=== PATIENT | female | born 1975 | race Caucasian/White ===

== ENCOUNTER 2016-11-05 09:29 | Inpatient (IN) | payer BC ==
--- NOTE | 2016-11-05 10:10 | ED ---
General Adult HPI - General Chief complaint: Psychiatric Symptoms Stated complaint: Mental Health Time Seen by Provider: 11/05/16 10:01 Source: patient, RN notes reviewed Mode of arrival: ambulatory Limitations: no limitations - History of Present Illness Initial comments: Patient is a 41-year-old female who presents emergency room today with a chief complaint of suicidal ideation. She does admit to a history of depression. States she's had thoughts of hurting herself in the past. States over the last few weeks since been increasingly she's having increased thoughts of hurting herself. She states she does have a specific plan. Patient does not go into detail at this time. Patient's is at bedside with her. Patient states she has been trying to see a new counselor or therapist but does not have an appointment the last week. States her family doctor's been managing her medications for anxiety and depression. She states been no changes and she has been taking the medication as prescribed. Patient denies any homicidal thoughts or plans. She denies any visual or auditory hallucinations. Denies any other physical complaints. Patient denies any recent fever, chills, shortness of breath, chest pain, back pain, abdominal pain, nausea or vomiting, numbness or tingling, dysuria or hematuria, constipation or diarrhea, headaches or visual changes, or any other complaints. - Related Data Home Medications Medication Instructions Recorded Confirmed Ergocalciferol (Vitamin D2) 50,000 unit PO OLSON 11/05/16 11/05/16 [Vitamin D2] LORazepam [Ativan] 0.5 mg PO HS 11/05/16 11/05/16 Lansoprazole [Prevacid] 30 mg PO DAILY 11/05/16 11/05/16 Ondansetron [Zofran ODT] 8 mg PO Q8HR PRN 11/05/16 11/05/16 Allergies Allergy/AdvReac Type Severity Reaction Status Date / Time duloxetine [From Cymbalta] Allergy Unknown Verified 11/05/16 11:47 erythromycin base Allergy Unknown Verified 11/05/16 11:47 sulfamethoxazole Allergy Unknown Verified 11/05/16 11:47 [From Bactrim] trimethoprim [From Bactrim] Allergy Unknown Verified 11/05/16 11:47 Review of Systems ROS Statement: Those systems with pertinent positive or pertinent negative responses have been documented in the HPI. ROS Other: All systems not noted in ROS Statement are negative. Past Medical History Past Medical History: No Reported History History of Any Multi-Drug Resistant Organisms: None Reported Past Surgical History: Section, Cholecystectomy, Tubal Ligation Additional Past Surgical History / Comment(s): left breast lump removed, Leap procedure Past Psychological History: Anxiety, Depression Smoking Status: Current every day smoker Past Alcohol Use History: None Reported Past Drug Use History: Marijuana General Exam - General Exam Comments Initial Comments: General: The patient is awake and alert, in no distress, and does not appear acutely ill. Eye: Pupils are equal, round and reactive to light, extra-ocular movements are intact. No nystagmus. There is normal conjunctiva bilaterally. No signs of icterus. Ears, nose, mouth and throat: There are moist mucous membranes and no oral lesions. Neck: The neck is supple, there is no tenderness or JVD. Cardiovascular: There is a regular rate and rhythm. No murmur, rub or gallop is appreciated. Respiratory: Lungs are clear to auscultation, respirations are non-labored, breath sounds are equal. No wheezes, stridor, rales, or rhonchi. Musculoskeletal: Normal ROM, no tenderness. Strength 5/5. Sensation intact. Pulses equal bilaterally 2+. Neurological: A&O x 3. CN II-XII intact, There are no obvious motor or sensory deficits. Coordination appears grossly intact. Speech is normal. Skin: Skin is warm and dry and no rashes or lesions are noted. Psychiatric: Cooperative. Tearful. Depressed affect. Limitations: no limitations Course Vital Signs 11/05/16 11/05/16 09:36 12:41 Temperature 97.7 F 98.3 F Pulse Rate 109 H 77 Respiratory 17 17 Rate Blood Pressure 145/88 119/68 O2 Sat by Pulse 99 97 Oximetry Medical Decision Making - Lab Data Lab Results 11/05/16 11/05/16 Range/Units 09:40 09:40 Urine HCG, Qual Not Detected (Not Detectd) Urine Opiates Screen Not Detected (NotDetected) Ur Oxycodone Screen Not Detected (NotDetected) Urine Methadone Screen Not Detected (NotDetected) Ur Propoxyphene Screen Not Detected (NotDetected) Ur Barbiturates Screen Not Detected (NotDetected) U Tricyclic Antidepress Not Detected (NotDetected) Ur Phencyclidine Scrn Not Detected (NotDetected) Ur Amphetamines Screen Not Detected (NotDetected) U Methamphetamines Scrn Not Detected (NotDetected) U Benzodiazepines Scrn Detected H (NotDetected) Urine Cocaine Screen Not Detected (NotDetected) U Marijuana (THC) Screen Detected H (NotDetected) Disposition Clinical Impression: Suicidal ideation Disposition: Left Against Medical Advice Condition: Stable
[2016-11-05] MEDS ORDERED: MAG HYDROX/AL HYDROX/SIMETH 30 ML CUP PO PRN (12:53)
[2016-11-05] MEDS ORDERED: ACETAMINOPHEN TAB 325 MG TAB PO PRN (12:53)
[2016-11-05] MEDS ORDERED: MAGNESIUM HYDROXIDE 2,400 MG/10 ML CUP PO PRN (12:53)
[2016-11-05] MEDS ORDERED: LORazepam 1 MG TAB PO PRN (15:36)
[2016-11-05] MEDS ORDERED: NICOTINE 21MG/24HR PATCH TRANSDERM SCH (15:45)
[2016-11-05] MEDS ORDERED: ONDANSETRON 4 MG TAB PO PRN (15:46)
[2016-11-05] MEDS: NICOTINE 14MG/24HR PATCH TRANSDERM SCH (15:51)
[2016-11-05] MEDS: PARoxetine 10 MG TAB PO SCH (15:51)
[2016-11-05] MEDS: LORazepam 1 MG TAB PO PRN (15:51)
--- NOTE | 2016-11-05 16:03 | P.HP ---
Psychiatric H&P - . H&P Date: 11/05/16 History & Physical: Allergies Allergy/AdvReac Type Severity Reaction Status Date / Time duloxetine From Cymbalta Allergy Unknown Verified 11/05/16 11:47 erythromycin base Allergy Unknown Verified 11/05/16 11:47 sulfamethoxazole Allergy Unknown Verified 11/05/16 11:47 From Bactrim trimethoprim From Bactrim Allergy Unknown Verified 11/05/16 11:47 Vital Signs Temp 98.3 F 11/05/16 12:41 Pulse 77 11/05/16 12:41 Resp 17 11/05/16 12:41 BP 119/68 11/05/16 12:41 Pulse Ox 97 11/05/16 12:41 Intake & Output 11/04/16 11/05/16 11/05/16 18:59 06:59 18:59 Weight 56.699 kg Laboratory Last Values Urine HCG, Qual Not Detected (Not Detectd) 11/05/16 09:40 Urine Opiates Screen Not Detected (NotDetected) 11/05/16 09:40 Ur Oxycodone Screen Not Detected (NotDetected) 11/05/16 09:40 Urine Methadone Screen Not Detected (NotDetected) 11/05/16 09:40 Ur Propoxyphene Screen Not Detected (NotDetected) 11/05/16 09:40 Ur Barbiturates Screen Not Detected (NotDetected) 11/05/16 09:40 U Tricyclic Antidepress Not Detected (NotDetected) 11/05/16 09:40 Ur Phencyclidine Scrn Not Detected (NotDetected) 11/05/16 09:40 Ur Amphetamines Screen Not Detected (NotDetected) 11/05/16 09:40 U Methamphetamines Scrn Not Detected (NotDetected) 11/05/16 09:40 U Benzodiazepines Scrn Detected (NotDetected) H 11/05/16 09:40 Urine Cocaine Screen Not Detected (NotDetected) 11/05/16 09:40 U Marijuana (THC) Screen Detected (NotDetected) H 11/05/16 09:40 11/05/16 15:09 DATE OF SERVICE: 11/05/2016 IDENTIFYING DATA: This patient is a 41 year-old female who was admitted to the mental health unit through emergency room, patient brought herself to the emergency room due to recent onset of suicidal ideation. . HISTORY OF PRESENT ILLNESS: The patient presents with 12 years depression and anxiety off and on, it effects her physically, becomes sick to stomach, nausea and vomiting. When severe she will lose weight. She will have periods where she his fine no physical problems and feels good. Due to lack of insurance she would frequently be treated in the emergency rooms due to dehydration, she would be given IV fluids and Zofran and Ativan. Now her outpatient doctor is treating her with Zofran and Ativan and had plans to start Paxil. Patient reports that she has tried Cymbalta and Wellbutrin Prozac and had negative effects with them primarily GI . 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 They brought her back into the office and she is afraid that she may lose her job because she is sick too often. Her sleep is disturbed waking up every few hours, wakes up 4:57 in the morning sometimes with vomiting. Reports that she has lost 35 pounds since April she is not trying to lose weight she also notes that she loses hair Patient has never attempted suicide, but thoughts of suicide and in lat 24 hours came up with a plan, OD but afraid her children would find her so she came in to the hospital. Her outpatient doctor was planning on starting her on Paxil because it was the one antidepressant that she had used about 12 years ago for her son was born, and she took it for approximately 2 years. PAST PSYCHIATRIC HISTORY: denies. PAST MEDICAL HISTORY: denies ALLERGIES: No known drug allergies. CHEMICAL DEPENDENCY HISTORY: does not drink, use cannabis, smokes daily, at bedtime. 1ppd FAMILY PSYCHIATRIC HISTORY: brother with bipolar schizophrenic. FAMILY CHEMICAL DEPENDENCY HISTORY:grandfather etohic, uncle drug. LEGAL HISTORY: none. SOCIAL HISTORY: [employer] in , parents when 18, 1 bio brother, 1step brother, step sister. Both parents here, good relationship with parents and bother. x 1 for 15 years, 11 son 14 daughter. Daughter contemplated suicide, and hospitalized at [facility], patient thinks daughter became aware of marital problems. 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 GED. No service. . MENTAL STATUS EXAM:Patient alert and oriented 3, good eye contact, wel groomed in hospital attire/street clothing. Speech low volume, rate and production. Coherent, logical and goal directed thought process. No SRIKANTH, no FOI. [No TB/TW/ TI] Denied auditory and visual hallucinations. Denied paranoid ideation, delusions or IOR. Memory [intact] Cognition average Recalled 3 out of 3 at 0 minutes, [3/3@ 5minuters]; Serial 7's [] Mood [dysphoric], affect and constricted, congruent with mood. Denies suicidal ideation, denies homicidal ideation. Insight partial; Judgement grossly intact for treatment purposes . STRENGTHS: verbal, employed WEAKNESSES: poor coping skills IMPRESSIONS: 41-year-old female with a 12 year history of depression and anxiety that has a primary presentation with nausea and vomiting and weight loss. She has tried multiple antidepressants but has been unable to tolerate either vomiting or having some form of confusion poor concentration. She took Paxil more than 12 years ago for approximately 2 years and had no problems. She meets criteria for major depressive disorder, depressed mood, anhedonia, fatigue, insomnia in all phases, but only recently did she start to have thoughts of suicide and then had a plan in the last 24 hours which brought her into the hospital. She has been having some marital conflict, her 14-year-old daughter was recently hospitalized due to suicide ideation, poor school performance recently. She is also stressed due to work with risk of loss of job. No evidence of ruperto or hypomania. No psychosis Suicidal ideation, no intent. Major depressive disorder, recurrent, severe Suicide ideation Cannabis use, moderate PLAN: Continue inpatient psychiatric hospitalization for safety, and for treatment. Suicide precautions 15 minute checks. History and physical by hospitalist. Will begin Paxil 10 mg, she may also use Zofran, and Ativan if nauseated. Nicotine patch 21 mg Encourage to attend groups. Social work to address discharge planning/family meeting 11/05/16 15:47 11/05/16 15:57 11/05/16 16:03
[2016-11-05] MEDS ORDERED: ONDANSETRON 4 MG TAB PO SCH (21:00)
[2016-11-05] MEDS: SCOPOLAMINE 1.5MG/72HR PATCH TRANSDERM SCH (21:35)
[2016-11-06] MEDS ORDERED: PARoxetine 10 MG TAB PO SCH (09:00)
[2016-11-06] MEDS: LORazepam 1 MG TAB PO PRN ×2 (09:23→21:51)
[2016-11-06] MEDS: NICOTINE 14MG/24HR PATCH TRANSDERM SCH (09:23)
[2016-11-06] MEDS: PARoxetine 10 MG TAB PO SCH (09:23)
[2016-11-06 10:13] LABS: Basophils % (A) 1 %; CH 32.3; CHCM 33.4; Eosinophils # (A) 0.1 k/uL (0-0.7); Eosinophils % (A) 1 %; HCT 43.4 % (34.0-46.0); HDW 2.19; HGB 14.2 gm/dL (11.4-16.0); Luc # (Auto) 0.12; Luc % (Auto) 2; Lymphocytes # (A) 2.1 k/uL (1.0-4.8); Lymphocytes % (A) 32 %; MCH 31.8 pg (25.0-35.0); MCHC 32.7 g/dL (31.0-37.0); MCV 97.3 fL (80.0-100.0); Mean Platelet Volume 7.9; Monocytes # (A) 0.4 k/uL (0-1.0); Monocytes % (A) 7 %; Neutrophils # (A) 3.8 k/uL (1.3-7.7); Neutrophils % (A) 58 %; RBC 4.46 m/uL (3.80-5.40); RDW 13.5 % (11.5-15.5); WBC 6.6 k/uL (3.8-10.6); WBC (Perox) 6.62
[2016-11-06 10:22] LABS: ALT 14 U/L (9-52); AST 25 U/L (14-36); Alkaline Phosphatase 68 U/L (38-126); Anion Gap 14 mmol/L; Blood Urea Nitrogen 9 mg/dL (7-17); Calcium 9.3 mg/dL (8.4-10.2); Carbon Dioxide 20 mmol/L (22-30); Chloride 107 mmol/L (98-107); Glucose 91 mg/dL (74-99); Non-African American GFR(MDRD) >60 (>60 ml/min/1.73 sqM); Sodium 141 mmol/L (137-145); Total Bilirubin 1.2 mg/dL (0.2-1.3); Total Protein 7.8 g/dL (6.3-8.2)
[2016-11-06] MEDS: ONDANSETRON 4 MG TAB PO PRN ×2 (10:26→21:51)
[2016-11-06 10:49] LABS: Potassium 4.4 mmol/L (3.5-5.1)
--- NOTE | 2016-11-06 12:38 | CONS ---
DATE OF CONSULTATION: 11/05/2016 REASON FOR CONSULTATION: Medical management requested by Dr. Villar. CONSULTATION: This is a pleasant 41-year-old patient of Dr. Manuel Live who has a long-standing history of depression and anxiety, going through some stress at work. Patient is a smoker. Also has GERD and felt to be suicidal, hence decided to come into the ER. Patient gets abdominal discomfort off and on she states. REVIEW OF SYSTEMS: CONSTITUTIONAL: None. HEENT: None. RESPIRATORY: None. CARDIOVASCULAR: None. GASTROINTESTINAL: Heartburn. Patient does get some abdominal discomfort intermittently. GENITOURINARY: None. MUSCULOSKELETAL: None. DERMATOLOGIC: None. HEMATOLOGIC: None LYMPHATICS: None. PSYCHIATRY: Depression, anxiety. NEUROLOGICAL: None. Past medical history of major depression, GERD. PAST SURGICAL HISTORY: , cholecystectomy, tubal ligation, left breast lymph removed, LEEP procedure. SOCIAL HISTORY: Patient smokes a pack a day, does marijuana once a day. , employed. FAMILY HISTORY: Reviewed; noncontributory to presentation. HOME MEDICATIONS: Zofran 8 mg q.8 p.r.n., Prevacid 30 mg p.o. daily, Ativan 0.5 mg p.o. q.h.s., Vitamin D2 fifty thousand units Sundays. Allergies to CYMBALTA, ERYTHROMYCIN, BACTRIM. On examination, temperature 98.3, pulse 77, respirations 17, blood pressure 109/68, pulse ox 97% on room air. GENERAL APPEARANCE: Thin build, lying in bed, tired-appearing. EYES: Pupils equal. Conjunctivae normal. HEENT: Oral cavity normal. NECK: JVD not raised. Mass not palpable. RESPIRATORY: Effort normal. LUNGS: Clear. CARDIOVASCULAR: First and second sounds normal. No edema. ABDOMEN: Soft, nontender. Liver and spleen not palpable. LYMPHATIC: No lymph nodes palpable in neck or axillae. PSYCHIATRY: Alert and oriented x3. Mood and affect depressed-appearing. NEUROLOGICAL: Pupils equal. Cranial nerves grossly intact. Power and sensation grossly intact. INVESTIGATIONS: Urine drug screen positive for benzos and marijuana. ASSESSMENT: 1. Major depression, recurrent suicidal ideation. 2. Gastroesophageal reflux disease. 3. Chronic nicotine dependence. Patient is a smoker. 4. Marijuana use, recreational, daily. PLAN: Patient advised against smoking, given a nicotine patch. Also counseled against marijuana. Patient to be started on Paxil and Ativan per Psychiatry. For patient's nausea, give her a scopolamine encouraged. Encouraged to be out of bed. Thank you, Dr. Villar.
--- NOTE | 2016-11-06 14:39 | P.PN ---
Progress Note - Text INTERVERAL HISTORY: Patient called to nurse's station. Patient states that she is feeling very tired sleeping. States she normally doesn't take Zofran during the day only at bedtime unless she is really sick and has to go to work. She was prescribed scopolamine patch which may be part of the sedation. She took the Paxil yesterday and although she woke up early this morning with some dry heaves, she was able to keep it down. She notes that she had some diarrhea last night we discussed that was unlikely due to Paxil but due to her anxiety. In team treatment meeting this morning I was informed that she had signed AMA form. Asked her about that, she states that she thinks that maybe she was just overreacting to her anxiety and came in. States she would never kill her self, that she has 2 beautiful children and that she wants to be here for them. During the treatment team meeting the social work nurse revealed some additional difficulties that the patient is having some contradictions in her history. It was decided that she would remain for the real time analyst available for the AMA, and will address on Wednesday or Wednesday. Discussed increasing Paxil to 20 mg for tomorrow morning initially she wanted to wait for a few days, but informed her that it makes sense while she is in the hospital to increase because we can help her with the nausea or vomiting if it occurs. She agreed MENTAL STATUS EXAM:Patient alert and oriented 3, good eye contact, fair groomed in street clothing. Speech normal volume, rate and production. Coherent, logical and goal directed thought process. No SRIKANTH, no FOI. [No TB/TW/ TI] Denied auditory and visual hallucinations. Denied paranoid ideation, delusions or IOR. Memory [grossly intact] Cognition average Mood dysphoric, affect constricted, congruent with mood. +suicidal ideation, denies homicidal ideation. Insight and limited; Judgement grossly intact for treatment purposes A: 41-year-old female with a 12 year history of depression and anxiety that is somatically experienced. Focused on her physical symptoms now and minimizing her psychological distress. Family history was not revealed of a serious suicide attempt by her father when she around her daughters age. She has also taken her daughter out of treatment. She meets criteria for major depressive disorder, depressed mood, anhedonia, fatigue, insomnia in all phases, but only recently did she start to have thoughts of suicide and then had a plan in the last 24 hours which brought her into the hospital. She has been having some marital conflict, her 14-year-old daughter was recently hospitalized due to suicide ideation, poor school performance recently. She is also stressed due to work with risk of loss of job. No evidence of ruperto or hypomania. No psychosis Suicidal ideation, no intent. Major depressive disorder, recurrent, severe Suicide ideation Cannabis use, moderate PLAN: Continue inpatient psychiatric hospitalization for safety, and for treatment. Suicide precautions 15 minute checks. Appreciate input from hospitalist for nausea. Will increase Paxil 20 mg, begin tomorrow Nicotine patch 21 mg Encourage to attend groups. Social work to address discharge planning/family meeting
[2016-11-07] MEDS: NICOTINE 14MG/24HR PATCH TRANSDERM SCH (08:46)
[2016-11-07] MEDS: PARoxetine 20 MG TAB PO SCH (08:46)
--- NOTE | 2016-11-07 16:47 | P.PN ---
Progress Note - Text Interval history: [facility] for Dr. Villar. She makes reference to wanting to be old to go home. She signed an AMA form yesterday she states. We did discuss that her attending psychiatrist would be returning this Wednesday. He makes reference to having follow-up at [facility]. She states that she is doing much better in terms of her nausea and vomiting. She seems to be tolerating the Paxil well. She talks of wanting to be home with her family. Mental status exam: She is alert and cooperative with the interview. Her speech is fluent, not rapid or pressured. Thought processes are organized. Her mood overall seems to be improved. She does not verbalize any thoughts of harm to self or others. No evidence of psychosis or agitation. Plan: We'll maintain Paxil as current. We will monitor for any medication side effects and monitor her ongoing response. We'll continue to cover this patient for Dr. Villar through the weekend.
[2016-11-07] MEDS: LORazepam 1 MG TAB PO PRN (18:03)
[2016-11-07] MEDS: ONDANSETRON 4 MG TAB PO PRN (18:23)
[2016-11-08] MEDS: PARoxetine 20 MG TAB PO SCH (08:54)
[2016-11-08] MEDS: NICOTINE 14MG/24HR PATCH TRANSDERM SCH (08:54)
--- NOTE | 2016-11-08 14:04 | P.PN ---
Progress Note - Text Interval history: Patient seen in cross coverage today for Dr. Villar. She reports that she is feeling better. She states that earlier today she felt lightheadedness it is doing better now. She states that she has not been vomiting yesterday or today. She seems to be doing well with the Paxil. Mental status exam: She is alert and cooperative with the interview. Her speech is fluent, not rapid or pressured. Thought processes are organized. Her affect does show range. Her mood is improved. She denies any thoughts of harm to self or others. No evidence of psychosis or agitation. Plan: Patient will be maintained on current psychotropic medication regimen. We will be checking her pulse and blood pressure. Dr. Villar to resume care this patient starting tomorrow. She does request regarding her children who are 14 and 11 to [facility].
[2016-11-08] MEDS: SCOPOLAMINE 1.5MG/72HR PATCH TRANSDERM SCH (20:19)
[2016-11-09 08:59] LABS: Glucose,Whole Blood 120 mg/dL (75-99)
[2016-11-09] MEDS: NICOTINE 14MG/24HR PATCH TRANSDERM SCH (09:31)
[2016-11-09] MEDS ORDERED: ONDANSETRON ODT 8 MG TAB.RAPDIS PO PRN (09:40)
[2016-11-09] MEDS: LORazepam 1 MG TAB PO PRN ×2 (09:43→21:12)
[2016-11-09] MEDS: PARoxetine 20 MG TAB PO SCH (11:38)
[2016-11-09] MEDS ORDERED: PARoxetine 10 MG TAB PO STA (12:17)
--- NOTE | 2016-11-09 12:27 | P.PN ---
Progress Note - Text INTERVERAL HISTORY: Patient called to nurse's station. Reports she has been taking the higher, dose felt nauseated and some dry heaves with saliva, could not eat breakfast. Took zoforan and ativan laid down for an hour and felt better and hungry. Says this is a good sign for her. Stated she saw children last night, happy but says she was so happy that she might have made herself sick. Says she really wants to go home. Discussed the AMA, asked her to consider revoking and staying longer to solidify the improvement and that taking higher doses would be easier here, she declined, wants to leave [place], her children have some events she does not want to miss. Patient did agree though to let me add paxil 10mg stat and then start 30mg tomorrow morning. Asked about if she has vertigo. MENTAL STATUS EXAM:Patient alert and oriented 3, good eye contact, fair groomed in street clothing. Speech normal volume, rate and production. Coherent, logical and goal directed thought process. No SRIKANTH, no FOI. [No TB/TW/ TI] Denied auditory and visual hallucinations. Denied paranoid ideation, delusions or IOR. Memory [grossly intact] Cognition average Mood dysphoric--->neutral, affect ful range, decreased intensity, congruent with mood. Denies suicidal ideation, denies homicidal ideation. Insight limited; Judgement grossly intact for treatment purposes A: 41-year-old female with a 12 year history of depression and anxiety that is somatically experienced/manifested. Tolerating Paxil 20mg, has appetite, mood appearing better, no suicidal ideation. She meets criteria for major depressive disorder, depressed mood, anhedonia, fatigue, insomnia in all phases, but only recently did she start to have thoughts of suicide and then had a plan in 24 hours TE[employer], now SI resolved. Slight improvement in her mood/affect. No evidence of ruperto or hypomania. No psychosis Suicidal ideation, no intent. Major depressive disorder, recurrent, severe Suicide ideation Cannabis use, moderate PLAN: Continue inpatient psychiatric hospitalization for safety, and for treatment. Suicide precautions 15 minute checks. AMA will end tomorrow morning, no clinical evidence to warrant petition/certification, will have to release tomorrow morning. Now dose of Paxil 10mg, increase Paxil 30 mg, begin tomorrow. She reports she has scrips at home for all medication, zoforan, ativan and paxil 20mg, so will instructions to take 1.5 tab. Nicotine patch 21 mg Encourage to attend groups. Reports her family meeting went well. D/C in am.
[2016-11-09 14:37] VITALS: BMI 20.9
[2016-11-10 06:50] VITALS: TEMP 98.1
--- NOTE | 2016-11-10 08:27 | P.DS ---
Providers Date of admission: 11/05/16 12:41 Expected date of discharge: 11/10/16 Attending physician: Sophia Villar MD Consults: 11/05/16 13:07 Consult Physician Routine Consulting Provider: Roman Sheikh Consult Reason/Comments: follow up h & P Do you want consulting provider notified?: Yes Primary care physician: Manuel Layton Hospital Course: HOSPITAL ADMISSION: This patient is a 41 year-old female who was admitted to the mental health unit through emergency room, patient brought herself to the emergency room due to recent onset of suicidal ideation. . The patient presents with 12 years depression and anxiety off and on, it effects her physically, becomes sick to stomach, nausea and vomiting. When severe she will lose weight. She will have periods where she his fine no physical problems and feels good. Due to lack of insurance she would frequently be treated in the emergency rooms due to dehydration, she would be given IV fluids and Zofran and Ativan. Now her outpatient doctor is treating her with Zofran and Ativan and had plans to start Paxil. Patient reports that she has tried Cymbalta and Wellbutrin Prozac and had negative effects with them primarily GI . 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 They brought her back into the office and she is afraid that she may lose her job because she is sick too often. Her sleep is disturbed waking up every few hours, wakes up 4:57 in the morning sometimes with vomiting. Reports that she has lost 35 pounds since April she is not trying to lose weight she also notes that she loses hair Patient has never attempted suicide, but thoughts of suicide and in last 24 hours came up with a plan, OD but afraid her children would find her so she came in to the hospital. Her outpatient doctor was planning on starting her on Paxil because it was the one antidepressant that she had used about 12 years ago for her son was born, and she took it for approximately 2 years. HOSPITAL COURSE: Patient was started on low-dose Paxil 10 mg, Zofran 8 mg ODT when necessary 3 times a day, and a scopolamine patch. The first day she was unable to keep any food down the second day she did a bit better we increased to 20 mg and although she reported feeling a bit lightheaded she agreed on the last day to increase to 30 mg. Reported that she tolerated the 30 mg yesterday and although she is still a bit lightheaded she reports today she is feeling much better. She signed AMA form second day she was here reporting that she needed to go home to her children that she was no longer suicidal. We discussed this with looking at her past history of being unable to tolerate medications and that since she was here it would make sense to take advantage of the support of nursing so that we did not allow her to leave until the AMA 72 hours had passed. We tried to convince her to stay longer recognizing the need probably for a higher dose of Paxil then 30 mg she declined. There was no clinical evidence to support a certification period She did appear to be a bit less dysphoric, but this appeared to be more of a flight into health than anything else. She had a family meeting that went well she has a supportive spouse and her mother is supportive. She reported that she was able to keep the Paxil down, and that she even noted a return of appetite yesterday late morning. Patient has no suicidal ideation. Mood is still dysphoric but improved, affect is full range decreased intensity. Major Depressive Disorder, Recurrent, moderate Suicide ideation, resolved Plan: Discharge today Patient informed me that she has Zofran Ativan and Paxil at home, she has a 20 mg tablet so she will take 1-1/2 tablets to equal 30 mg Encouraged her to speak to her provider and to increase Paxil at least to 40mg, and to consider the CR formulation if she can afford it. Social work set up outpatient appointments, patient is encouraged to follow up Pertinent Studies: none Procedures: none Plan - Discharge Summary New Discharge Prescriptions: New PARoxetine [Paxil] 30 mg PO DAILY tab Continue Ondansetron [Zofran ODT] 8 mg PO Q8HR PRN PRN Reason: Nausea Lansoprazole [Prevacid] 30 mg PO DAILY Ergocalciferol (Vitamin D2) [Vitamin D2] 50,000 unit PO OLSON Discontinued LORazepam [Ativan] 0.5 mg PO HS Discharge Medication List Ergocalciferol (Vitamin D2) [Vitamin D2] 50,000 unit PO OLSON 11/05/16 [History] Lansoprazole [Prevacid] 30 mg PO DAILY 11/05/16 [History] Ondansetron [Zofran ODT] 8 mg PO Q8HR PRN 11/05/16 [History] PARoxetine [Paxil] 30 mg PO DAILY tab 11/10/16 [Rx] Follow up Appointment(s)/Referral(s): Manuel Live DO [Primary Care Provider] - 1-2 days Discharge Disposition: Left Against Medical Advice
[2016-11-10] MEDS: NICOTINE 14MG/24HR PATCH TRANSDERM SCH (08:36)
[2016-11-10] MEDS: PARoxetine 20 MG TAB PO SCH (08:36)
[2016-11-10 08:54] VITALS: BP 108/74; PULSE 94; RESP 16
== END 2016-11-10 11:44 | disposition left against medical advice (07) | DRG 885 ==
LOC: EC 09:29 → 3MHU 12:41
PROVIDERS: ADMIT Psychiatry & Neurology Addiction Medicine; ATTEND Psychiatry & Neurology Addiction Medicine
DX: F33.2 Major depressive disorder, recurrent severe without psychotic features (principal); R45.851 Suicidal ideations; F41.9 Anxiety disorder, unspecified; K21.9 Gastro-esophageal reflux disease without esophagitis; Z79.899 Other long term (current) drug therapy; Z81.8 Family history of other mental and behavioral disorders; F17.210 Nicotine dependence, cigarettes, uncomplicated; F12.90 Cannabis use, unspecified, uncomplicated; E86.0 Dehydration; Z71.6 Tobacco abuse counseling; R63.4 Abnormal weight loss; Z68.21 Body mass index [BMI] 21.0-21.9, adult; Z88.2 Allergy status to sulfonamides; Z88.8 Allergy status to other drugs, medicaments and biological substances
CPT/HCPCS: 80053; 80306; 81025; 82075; 84443; 85025; 99285

== ENCOUNTER → 2022-12-29 | Outpatient (CLI) | payer BC, OTHER ==
--- NOTE | 2022-12-30 18:22 | MM ---
Reason for Exam: Screening (asymptomatic). Last mammogram was performed 12 year(s) and 5 month(s) ago. Patient History: Menarche at age 15. First Full-Term at age 27. Premenopausal. MG pre op needle loc LT - 2 on the Left side. Paternal aunt had breast cancer at or over age 50. Risk Values: Sarahi 5 year model risk: 1.4%. NCI Lifetime model risk: 12.7%. Prior Study Comparison: 08/04/2010 Bilateral Diagnostic Mammogram, Unknown. Tissue Density: There are scattered fibroglandular densities. Findings: Analyzed By CAD. Pattern appears symmetrical and stable. No suspicious groups of microcalcifications, spiculated or lobular masses, architectural distortion or other secondary signs of malignancy are mammographically apparent. Overall Assessment: Benign, BI-RAD 2 Management: Screening Mammogram of both breasts in 1 year. A negative mammogram report should not preclude additional follow up of suspicious palpable abnormalities. Patient should continue monthly self breast exam. A clinical breast exam by your physician is recommended on an annual basis and results should be correlated with mammographic findings. Electronically signed and approved by: Jason Hopper D.O. Radiologis
== END | disposition home or self-care (01) ==
LOC: RADMAMWWP 07:02
PROVIDERS: ATTEND Family Medicine
DX: Z12.31 Encounter for screening mammogram for malignant neoplasm of breast (principal); Z80.3 Family history of malignant neoplasm of breast
CPT/HCPCS: 77063; 77067